=== PATIENT | male | born 1950 | race Caucasian/White ===

== ENCOUNTER 2020-01-06 17:57 | Emergency (ER) | payer OTHER ==
--- NOTE | 2020-01-06 18:05 | PDOC ---
Rapid Medical Evaluation Time Seen by Provider: 01/06/20 18:02 Medical Evaluation: 01/06/20 18:02 Pt was sent to the ER for frequent urination by Dr. Ribeiro Exam: Abdomen Soft and nontender Orders: urine, urine cx Pt to proceed to the ER for further evaluation Discharge Disposition - Diagnosis Frequent urination - Referrals Referrals: Martha Ribeiro [Primary Care Provider] - - Patient Instructions - Post Discharge Activity
[2020-01-06 18:06] VITALS: BP 123/90; PULSE 96; TEMP 99; BMI 27.3
[2020-01-06 18:33] LABS: PH,URINE 6.5 (5.0-8.0); URINE APPEARANCE CLEAR; URINE BILIRUBIN NEGATIVE (NEGATIVE); URINE COLOR YELLOW; URINE GLUCOSE (UA) NEGATIVE (NEGATIVE); URINE KETONE TRACE (NEGATIVE); URINE LEUK ESTERASE NEGATIVE (NEGATIVE); URINE NITRITE NEGATIVE (NEGATIVE); URINE PROTEIN NEGATIVE (NEGATIVE)
--- NOTE | 2020-01-06 20:56 | PDOC ---
History of Present Illness - General Chief Complaint: Urinary Problem Stated Complaint: URINARY PROBLEM Time Seen by Provider: 01/06/20 18:02 History Source: Patient - History of Present Illness Initial Comments: 01/06/20 20:58 69 year old male frequency of urine , small amount of urine with pain on urination x 1 week. denies polydipsia, polyphagia, weightloss. patient sent by PCP for evaluation. Patient reports weak urine stream, dribbling, frequency and urgency with nocturia. Patient reports that he feels inability to completely empty the bladder PMHX: none 01/06/20 21:02 01/06/20 21:32 Past History - Past Medical History Allergies/Adverse Reactions: Allergies Allergy/AdvReac Type Severity Reaction Status Date / Time No Known Allergies Allergy Verified 01/06/20 18:03 COPD: No - Psycho Social/Smoking Cessation Hx Smoking History: Never smoked Have you smoked in the past 12 months: No Information on smoking cessation initiated: No Hx Alcohol Use: No Drug/Substance Use Hx: No Review of Systems - Review of Systems Able to Perform ROS?: Yes Is the patient limited [place] proficient: No Constitutional: No: Symptoms Reported, See HPI, Chills, Diaphoresis, Fever, Loss of Appetite, Malaise, Night Sweats, Weakness, Weight Stable, Unintentional Wgt. Loss, Unexplained wgt Loss, Other ABD/GI: Yes: Other (suprapubic pain). No: Symptoms Reported, See HPI, Abdominal Distended, Abd. Pain w/ defecation, Blood Streaked Bowels, Constipated , Diarrhea, Difficulty Swallowing, Nausea, Poor Appetite, Poor Fluid Intake, Rectal Bleeding, Vomiting, Indigestion, Abdominal cramping, Tarry Stools *Physical Exam - Vital Signs Last Vital Signs Temp Pulse Resp BP Pulse Ox 99 F 96 H 18 123/90 95 01/06/20 18:04 01/06/20 18:04 01/06/20 18:04 01/06/20 18:04 01/06/20 18:04 - Physical Exam General Appearance: Yes: Appropriately Dressed Respiratory/Chest: positive: Lungs Clear, Normal Breath Sounds Cardiovascular: positive: Regular Rhythm, Regular Rate Male Genitalia: positive: normal genitalia, other (large prostate no nodule palpated) Integumentary: positive: Normal Color, Dry, Warm Neurologic: positive: Fully Oriented, Alert, Normal Mood/Affect ED Treatment Course - LABORATORY CBC & Chemistry Diagram: 01/06/20 22:14 01/06/20 22:14 - ADDITIONAL ORDERS Additional order review: Laboratory Results 01/06/20 18:11 Urine Color Yellow Urine Appearance Clear Urine pH 6.5 Ur Specific [place] 1.021 Urine Protein Negative Urine Glucose (UA) Negative Urine Ketones Trace H Urine Blood Negative Urine Nitrite Negative Urine Bilirubin Negative Urine Urobilinogen 1.0 Ur Leukocyte Esterase Negative ED Progress Note - Progress Note Progress Note: 01/06/20 21:51 A: BPH P: CBC CMP pelvic/ bladder Discharge - Discharge Information Problems reviewed: Yes Clinical Impression/Diagnosis: Urinary retention due to benign prostatic hyperplasia Disposition: HOME - Follow up/Referral Referrals: Satya Light MD [Staff Physician] - Call tomorrow Martha Ribeiro [Primary Care Provider] - Call tomorrow - Patient Discharge Instructions Patient Printed Discharge Instructions: Benign Prostatic Hyperplasia Additional Instructions: It is very important that you follow-up with a urologist. Your ultrasound shows that there is enlargement of the prostate which is causing you to retain urine. Return to the emergency room if you are unable to urinate - Post Discharge Activity Work/Back to School Note: Back to Work
--- NOTE | 2020-01-06 21:04 | PDOC ---
*Physical Exam - Vital Signs Last Vital Signs Temp Pulse Resp BP Pulse Ox 99 F 96 H 18 123/90 95 01/06/20 18:04 01/06/20 18:04 01/06/20 18:04 01/06/20 18:04 01/06/20 18:04 ED Treatment Course - ADDITIONAL ORDERS Additional order review: Laboratory Results 01/06/20 18:11 Urine Color Yellow Urine Appearance Clear Urine pH 6.5 Ur Specific [place] 1.021 Urine Protein Negative Urine Glucose (UA) Negative Urine Ketones Trace H Urine Blood Negative Urine Nitrite Negative Urine Bilirubin Negative Urine Urobilinogen 1.0 Ur Leukocyte Esterase Negative Medical Decision Making - Medical Decision Making 01/06/20 21:04 Patient seen by the advanced practice provider under my supervision. Ancillary testing reviewed as necessary. I agree with plan as outlined by the advanced practice provider. Discharge - Discharge Information Problems reviewed: Yes Clinical Impression/Diagnosis: Urinary retention due to benign prostatic hyperplasia - Follow up/Referral Referrals: Martha Ribeiro [Primary Care Provider] - - Patient Discharge Instructions - Post Discharge Activity
[2020-01-06] MEDS ORDERED: SODIUM CHLORIDE 0.9% 500 ML INFUS.BAG IV ONE (21:05)
[2020-01-06 22:33] LABS: BASO % 0.6 % (0-2.0); EOS % 1.6 % (0-4.5); HEMATOCRIT 48.5 % (35.4-49); HEMOGLOBIN 16.2 GM/dL (11.7-16.9); MCH 29.6 pg (25.7-33.7); MCHC 33.5 g/dl (32.0-35.9); MEAN CELL VOLUME 88.6 fl (80-96); MEAN PLT VOLUME 9.3 fl (7.5-11.1); NEUT % 52.8 % (42.8-82.8); PLATELET COUNT 210 K/MM3 (134-434); RBC 5.48 M/mm3 (4.00-5.60); RDW 13.3 % (11.9-15.9); WHITE BLOOD COUNT 8.5 K/mm3 (4.0-10.0)
[2020-01-06] MEDS ORDERED: TAMSULOSIN HCL 0.4 MG CAP PO ONE (22:44)
[2020-01-06] MEDS ORDERED: TAMSULOSIN HCL 0.4 MG CAP ONE ×2 (22:53→23:09)
[2020-01-06 23:01] LABS: BILIRUBIN,TOTAL 0.3 mg/dL (0.2-1); BLOOD UREA NITROGEN 18.6 mg/dL (7-18); CREATININE 1.1 mg/dL (0.55-1.3); POTASSIUM 4.1 mmol/L (3.5-5.1); TOT PROT 7.5 g/dl (6.4-8.2)
== END 2020-01-06 23:00 | disposition home or self-care (01) ==
LOC: JER 17:57
DX: N40.1 Benign prostatic hyperplasia with lower urinary tract symptoms (principal); R33.8 Other retention of urine
CPT/HCPCS: 36415; 76856-TC; 80053; 81003; 85025; 87086; 99284-25

== ENCOUNTER 2022-07-23 17:26 | Inpatient (IN) | payer OTHER ==
[2022-07-23] MEDS ORDERED: SODIUM CHLORIDE 1,000 ML IV STA (20:29)
[2022-07-23] MEDS ORDERED: ACETAMINOPHEN 1000 MG/100 ML BAG IVPB ONE (20:51)
[2022-07-23] MEDS ORDERED: ACETAMINOPHEN INJECTION 100 ML IVPB ONE (21:13)
[2022-07-23 21:45] LABS: BASO % 0.4 % (0-2.0); EOS % 0.1 % (0-4.5); HEMATOCRIT 49.6 % (35.4-49); HEMOGLOBIN 16.8 GM/dL (11.7-16.9); MCH 29.6 pg (25.7-33.7); MCHC 33.8 g/dl (32.0-35.9); MEAN CELL VOLUME 87.6 fl (80-96); MEAN PLT VOLUME 8.4 fl (7.5-11.1); NEUT % 74.5 % (42.8-82.8); PLATELET COUNT 214 10^3/uL (134-434); RBC 5.67 M/mm3 (4.00-5.60); RDW 13.4 % (11.9-15.9); WHITE BLOOD COUNT 7.8 K/mm3 (4.0-10.0)
[2022-07-23 22:07] LABS: ALBUMIN 4.1 g/dl (3.4-5.0); BLOOD UREA NITROGEN 10.7 mg/dL (7-18)
[2022-07-23 22:10] LABS: CREATININE 0.8 mg/dL (0.55-1.3)
[2022-07-23 22:11] LABS: BILIRUBIN,TOTAL 0.6 mg/dL (0.2-1); TOT PROT 7.9 g/dl (6.4-8.2)
[2022-07-23 22:33] LABS: EPI CELLS 28 /uL (0-25.1); HYALINE CASTS 1 /uL (0-3.1); URINE APPEARANCE CLEAR; URINE BACTERIA 78 /uL (0-1359); URINE BILIRUBIN NEGATIVE (NEGATIVE); URINE COLOR ORANGE; URINE GLUCOSE (UA) NEGATIVE (NEGATIVE); URINE KETONE TRACE (NEGATIVE); URINE LEUK ESTERASE TRACE (NEGATIVE); URINE NITRITE NEGATIVE (NEGATIVE); URINE PROTEIN TRACE (NEGATIVE); URINE RBC 1647 /uL (0-23.9); URINE UROBILINOGEN 0.2 mg/dL (0.2-1.0); URINE WBC 16 /uL (0-25.8)
[2022-07-23] MEDS: SODIUM CHLORIDE 1,000 ML IV SCH (22:35)
[2022-07-24] MEDS ORDERED: ACETAMINOPHEN 325 MG TABLET (FP) PO PRN (04:42)
[2022-07-24] MEDS ORDERED: ACETAMINOPHEN 325 MG TABLET (FP) ONE (05:43)
[2022-07-24 06:34] LABS: BASO % 0.5 % (0-2.0); EOS % 0.5 % (0-4.5); HEMATOCRIT 49.1 % (35.4-49); HEMOGLOBIN 16.3 GM/dL (11.7-16.9); LYMPH % 32.3 % (8-40); MCH 29.1 pg (25.7-33.7); MCHC 33.1 g/dl (32.0-35.9); MEAN CELL VOLUME 87.8 fl (80-96); MEAN PLT VOLUME 8.4 fl (7.5-11.1); MONO % 10.8 % (3.8-10.2); NEUT % 55.9 % (42.8-82.8); PLATELET COUNT 208 10^3/uL (134-434); RBC 5.59 M/mm3 (4.00-5.60); RDW 13.7 % (11.9-15.9); WHITE BLOOD COUNT 7.2 K/mm3 (4.0-10.0)
[2022-07-24 06:57] LABS: ALBUMIN 3.8 g/dl (3.4-5.0); BLOOD UREA NITROGEN 10.8 mg/dL (7-18); CALCIUM 8.8 mg/dL (8.5-10.1); MAGNESIUM 2.2 mg/dL (1.8-2.4)
[2022-07-24 07:01] LABS: CREATININE 0.8 mg/dL (0.55-1.3); PHOSPHOROUS 3.2 mg/dL (2.5-4.9)
[2022-07-24 07:02] LABS: BILIRUBIN,TOTAL 0.7 mg/dL (0.2-1)
[2022-07-24 07:03] LABS: TOT PROT 7.3 g/dl (6.4-8.2)
[2022-07-24] MEDS ORDERED: TAMSULOSIN HCL 0.4 MG CAP ONE (07:46)
[2022-07-24] MEDS: TAMSULOSIN HCL 0.4 MG CAP PO SCH (07:51)
[2022-07-24] MEDS ORDERED: ENOXAPARIN NA (PORCINE) 40 MG/0.4 ML DISP.SYRIN SQ ONE (08:46)
[2022-07-24] MEDS: ENOXAPARIN NA (PORCINE) 40 MG/0.4 ML DISP.SYRIN SQ SCH (09:18)
[2022-07-24] MEDS ORDERED: LIDOCAINE 5% TOPICAL PATCH ONE (11:33)
[2022-07-24] MEDS: LIDOCAINE 5% TOPICAL PATCH TP SCH (11:39)
[2022-07-24] MEDS ORDERED: traMADol HCL 50 MG TABLET PO ONE (11:55)
[2022-07-24] MEDS ORDERED: traMADol HCL 50 MG TABLET ONE (12:08)
[2022-07-24 15:18] VITALS: BMI 25.8
[2022-07-24] MEDS: SODIUM CHLORIDE 1,000 ML IV SCH (16:16)
[2022-07-24] MEDS: amLODIPine BESYLATE 5 MG TABLET (FP) PO SCH (16:45)
[2022-07-24] MEDS: CEFTRIAXONE 1 GM in DEXTROSE 5%-WATER - 50 ML IVPB SCH (16:45)
[2022-07-24] MEDS: ACETAMINOPHEN 325 MG TABLET (FP) PO PRN (19:53)
[2022-07-24] MEDS ORDERED: MELATONIN 5 MG TABLETS PO PRN (20:21)
[2022-07-24] MEDS: LIDOCAINE PATCH REMOVAL MC SCH (21:27)
[2022-07-25] MEDS: ACETAMINOPHEN 325 MG TABLET (FP) PO PRN ×3 (03:28→22:15)
[2022-07-25] MEDS: TAMSULOSIN HCL 0.4 MG CAP PO SCH (08:49)
[2022-07-25 09:18] LABS: HEMATOCRIT 49.2 % (35.4-49); HEMOGLOBIN 16.1 GM/dL (11.7-16.9); MCHC 32.6 g/dl (32.0-35.9); MEAN CELL VOLUME 88.7 fl (80-96); MEAN PLT VOLUME 8.9 fl (7.5-11.1); PLATELET COUNT 216 10^3/uL (134-434); RBC 5.54 M/mm3 (4.00-5.60); RDW 13.7 % (11.9-15.9); WHITE BLOOD COUNT 8.4 K/mm3 (4.0-10.0)
[2022-07-25] MEDS: LIDOCAINE 5% TOPICAL PATCH TP SCH (09:24)
[2022-07-25] MEDS: CEFTRIAXONE 1 GM in DEXTROSE 5%-WATER - 50 ML IVPB SCH (09:24)
[2022-07-25] MEDS: ENOXAPARIN NA (PORCINE) 40 MG/0.4 ML DISP.SYRIN SQ SCH (09:25)
[2022-07-25] MEDS: amLODIPine BESYLATE 5 MG TABLET (FP) PO SCH (09:26)
[2022-07-25 09:44] LABS: BLOOD UREA NITROGEN 10.3 mg/dL (7-18)
[2022-07-25 09:47] LABS: CREATININE 0.8 mg/dL (0.55-1.3)
[2022-07-25] MEDS: traMADol HCL 50 MG TABLET PO PRN (14:52)
[2022-07-25] MEDS ORDERED: ACETAMINOPHEN 500 MG TABLET (FP) PO ONE (15:31)
[2022-07-25] MEDS ORDERED: HALOPERIDOL 0.5 MG TABLET PO ONE (19:50)
[2022-07-25] MEDS ORDERED: HALOPERIDOL LACTATE 5 MG/ML IM PRN (19:58)
[2022-07-25] MEDS: LIDOCAINE PATCH REMOVAL MC SCH (22:28)
[2022-07-26] MEDS ORDERED: LIDOCAINE HCL 2% JELLY (30 ML/TUBE) TP ONE (03:18)
[2022-07-26] MEDS: traMADol HCL 50 MG TABLET PO PRN ×2 (04:05→16:20)
[2022-07-26] MEDS: LIDOCAINE 5% TOPICAL PATCH TP SCH (09:48)
[2022-07-26] MEDS: ENOXAPARIN NA (PORCINE) 40 MG/0.4 ML DISP.SYRIN SQ SCH (09:48)
[2022-07-26] MEDS: TAMSULOSIN HCL 0.4 MG CAP PO SCH ×2 (09:49→22:26)
[2022-07-26] MEDS: ACETAMINOPHEN 325 MG TABLET (FP) PO PRN ×2 (09:50→17:30)
[2022-07-26] MEDS: amLODIPine BESYLATE 5 MG TABLET (FP) PO SCH (09:50)
[2022-07-26] MEDS: CEFTRIAXONE 1 GM in DEXTROSE 5%-WATER - 50 ML IVPB SCH (09:50)
[2022-07-26 12:35] LABS: HEMATOCRIT 47.4 % (35.4-49); HEMOGLOBIN 16.1 GM/dL (11.7-16.9); MCH 29.9 pg (25.7-33.7); MCHC 33.9 g/dl (32.0-35.9); MEAN CELL VOLUME 88.2 fl (80-96); MEAN PLT VOLUME 8.3 fl (7.5-11.1); PLATELET COUNT 210 10^3/uL (134-434); RBC 5.38 M/mm3 (4.00-5.60); RDW 13.6 % (11.9-15.9)
[2022-07-26 14:06] LABS: CALCIUM 8.7 mg/dL (8.5-10.1)
[2022-07-26 14:07] LABS: ALBUMIN 3.7 g/dl (3.4-5.0)
[2022-07-26 14:08] LABS: BLOOD UREA NITROGEN 9.7 mg/dL (7-18)
[2022-07-26 14:11] LABS: CREATININE 0.8 mg/dL (0.55-1.3)
[2022-07-26 14:12] LABS: BILIRUBIN,TOTAL 0.5 mg/dL (0.2-1); TOT PROT 7.4 g/dl (6.4-8.2)
[2022-07-26] MEDS: OLANZapine 10 MG TABLET PO SCH (22:25)
[2022-07-26] MEDS: LIDOCAINE PATCH REMOVAL MC SCH (22:26)
[2022-07-27] MEDS: MELATONIN 5 MG TABLETS PO PRN (01:25)
[2022-07-27] MEDS: ACETAMINOPHEN 325 MG TABLET (FP) PO PRN ×3 (01:26→16:57)
[2022-07-27 09:01] LABS: HEMATOCRIT 49.2 % (35.4-49); HEMOGLOBIN 16.5 GM/dL (11.7-16.9); MCH 29.7 pg (25.7-33.7); MCHC 33.5 g/dl (32.0-35.9); MEAN CELL VOLUME 88.7 fl (80-96); MEAN PLT VOLUME 8.3 fl (7.5-11.1); PLATELET COUNT 220 10^3/uL (134-434); RBC 5.54 M/mm3 (4.00-5.60); RDW 13.9 % (11.9-15.9); WHITE BLOOD COUNT 6.5 K/mm3 (4.0-10.0)
[2022-07-27 09:31] LABS: CALCIUM 9.2 mg/dL (8.5-10.1)
[2022-07-27 09:32] LABS: BLOOD UREA NITROGEN 13.6 mg/dL (7-18)
[2022-07-27 09:35] LABS: CREATININE 0.9 mg/dL (0.55-1.3)
[2022-07-27] MEDS: CEFTRIAXONE 1 GM in DEXTROSE 5%-WATER - 50 ML IVPB SCH (11:00)
[2022-07-27] MEDS: amLODIPine BESYLATE 5 MG TABLET (FP) PO SCH (11:00)
[2022-07-27] MEDS: TAMSULOSIN HCL 0.4 MG CAP PO SCH ×2 (11:00→22:49)
[2022-07-27] MEDS: ENOXAPARIN NA (PORCINE) 40 MG/0.4 ML DISP.SYRIN SQ SCH (11:01)
[2022-07-27] MEDS: LIDOCAINE 5% TOPICAL PATCH TP SCH (11:01)
[2022-07-27] MEDS ORDERED: levETIRAcetam 500 MG/5 ML INJECTION VIAL IVPB ONE (13:22)
[2022-07-27 13:52] LABS: BASO % 1.1 % (0-2.0); EOS % 2.2 % (0-4.5); HEMATOCRIT 50.1 % (35.4-49); HEMOGLOBIN 16.7 GM/dL (11.7-16.9); LYMPH % 23.3 % (8-40); MCH 29.4 pg (25.7-33.7); MCHC 33.2 g/dl (32.0-35.9); MEAN CELL VOLUME 88.4 fl (80-96); MEAN PLT VOLUME 8.3 fl (7.5-11.1); NEUT % 63.4 % (42.8-82.8); PLATELET COUNT 217 10^3/uL (134-434); RBC 5.67 M/mm3 (4.00-5.60); RDW 13.7 % (11.9-15.9)
[2022-07-27 14:12] LABS: CALCIUM 9.1 mg/dL (8.5-10.1)
[2022-07-27 14:13] LABS: ALBUMIN 3.6 g/dl (3.4-5.0); BLOOD UREA NITROGEN 17.2 mg/dL (7-18); MAGNESIUM 2.3 mg/dL (1.8-2.4)
[2022-07-27 14:18] LABS: BILIRUBIN,TOTAL 0.3 mg/dL (0.2-1); TOT PROT 7.4 g/dl (6.4-8.2)
[2022-07-27] MEDS ORDERED: levETIRAcetam 500 MG/5 ML INJECTION VIAL IVPB SCH (22:00)
[2022-07-27] MEDS: OLANZapine 10 MG TABLET PO SCH (22:49)
[2022-07-27] MEDS: levETIRAcetam 500 MG TABLET (FP) PO SCH (22:49)
[2022-07-27] MEDS: LIDOCAINE PATCH REMOVAL MC SCH (22:54)
[2022-07-28] MEDS: LIDOCAINE 5% TOPICAL PATCH TP SCH (09:37)
[2022-07-28] MEDS: amLODIPine BESYLATE 5 MG TABLET (FP) PO SCH (09:37)
[2022-07-28] MEDS: TAMSULOSIN HCL 0.4 MG CAP PO SCH ×2 (09:37→22:04)
[2022-07-28] MEDS: ENOXAPARIN NA (PORCINE) 40 MG/0.4 ML DISP.SYRIN SQ SCH (09:37)
[2022-07-28] MEDS: levETIRAcetam 500 MG TABLET (FP) PO SCH ×2 (09:37→22:03)
[2022-07-28] MEDS: CEFTRIAXONE 1 GM in DEXTROSE 5%-WATER - 50 ML IVPB SCH (09:50)
[2022-07-28] MEDS: CEPHALEXIN MONOHYDRATE 500 MG CAPSULE (UD) PO SCH ×3 (11:52→23:21)
[2022-07-28] MEDS: ACETAMINOPHEN 325 MG TABLET (FP) PO PRN (13:45)
[2022-07-28] MEDS ORDERED: LORazepam 2 MG/ML SDV VIAL IM PRN (14:00)
[2022-07-28] MEDS: OLANZapine 10 MG TABLET PO SCH (22:03)
[2022-07-28] MEDS: LIDOCAINE PATCH REMOVAL MC SCH (22:06)
[2022-07-29] MEDS: CEPHALEXIN MONOHYDRATE 500 MG CAPSULE (UD) PO SCH ×4 (06:25→23:01)
[2022-07-29] MEDS: levETIRAcetam 500 MG TABLET (FP) PO SCH ×2 (10:11→21:57)
[2022-07-29] MEDS: TAMSULOSIN HCL 0.4 MG CAP PO SCH ×2 (10:11→21:57)
[2022-07-29] MEDS: OLANZapine 10 MG TABLET PO SCH ×2 (10:12→21:57)
[2022-07-29] MEDS: LIDOCAINE 5% TOPICAL PATCH TP SCH (10:12)
[2022-07-29] MEDS: amLODIPine BESYLATE 5 MG TABLET (FP) PO SCH (10:12)
[2022-07-29] MEDS: ENOXAPARIN NA (PORCINE) 40 MG/0.4 ML DISP.SYRIN SQ SCH (10:12)
[2022-07-29] MEDS: POLYETHYLENE GLYCOL (HEALTHYLAX) 3350 17 GM PACKET PO SCH (13:14)
[2022-07-29] MEDS: ACETAMINOPHEN 325 MG TABLET (FP) PO PRN ×2 (13:27→21:58)
[2022-07-29] MEDS: DEXTROSE 5%-0.45% SALINE 1,000 ML IV SCH (18:27)
[2022-07-29] MEDS: LIDOCAINE PATCH REMOVAL MC SCH (22:00)
[2022-07-29] MEDS: MELATONIN 5 MG TABLETS PO PRN (23:02)
[2022-07-30] MEDS: ACETAMINOPHEN 325 MG TABLET (FP) PO PRN ×2 (04:22→10:39)
[2022-07-30] MEDS: CEPHALEXIN MONOHYDRATE 500 MG CAPSULE (UD) PO SCH ×3 (07:03→17:59)
[2022-07-30] MEDS: POLYETHYLENE GLYCOL (HEALTHYLAX) 3350 17 GM PACKET PO SCH (10:34)
[2022-07-30] MEDS: TAMSULOSIN HCL 0.4 MG CAP PO SCH ×2 (10:34→21:22)
[2022-07-30] MEDS: ENOXAPARIN NA (PORCINE) 40 MG/0.4 ML DISP.SYRIN SQ SCH (10:34)
[2022-07-30] MEDS: OLANZapine 10 MG TABLET PO SCH ×2 (10:34→21:22)
[2022-07-30] MEDS: levETIRAcetam 500 MG TABLET (FP) PO SCH ×2 (10:34→21:21)
[2022-07-30] MEDS: amLODIPine BESYLATE 5 MG TABLET (FP) PO SCH (10:35)
[2022-07-30] MEDS: LIDOCAINE 5% TOPICAL PATCH TP SCH (10:35)
[2022-07-30] MEDS: DEXTROSE 5%-0.45% SALINE 1,000 ML IV SCH (17:56)
[2022-07-30] MEDS: MELATONIN 5 MG TABLETS PO PRN (21:22)
[2022-07-30] MEDS: LIDOCAINE PATCH REMOVAL MC SCH (21:25)
[2022-07-31] MEDS: CEPHALEXIN MONOHYDRATE 500 MG CAPSULE (UD) PO SCH ×4 (00:52→17:32)
[2022-07-31] MEDS: ACETAMINOPHEN 325 MG TABLET (FP) PO PRN ×3 (03:29→18:27)
[2022-07-31] MEDS: LIDOCAINE 5% TOPICAL PATCH TP SCH (09:32)
[2022-07-31] MEDS: ENOXAPARIN NA (PORCINE) 40 MG/0.4 ML DISP.SYRIN SQ SCH (09:33)
[2022-07-31] MEDS: OLANZapine 10 MG TABLET PO SCH ×2 (09:34→22:51)
[2022-07-31] MEDS: levETIRAcetam 500 MG TABLET (FP) PO SCH ×2 (09:34→22:51)
[2022-07-31] MEDS: POLYETHYLENE GLYCOL (HEALTHYLAX) 3350 17 GM PACKET PO SCH (09:35)
[2022-07-31] MEDS: TAMSULOSIN HCL 0.4 MG CAP PO SCH ×2 (09:35→22:51)
[2022-07-31 09:36] LABS: BASO % 0.6 % (0-2.0); EOS % 6.2 % (0-4.5); HEMATOCRIT 47.2 % (35.4-49); HEMOGLOBIN 15.4 GM/dL (11.7-16.9); MCH 29.1 pg (25.7-33.7); MCHC 32.7 g/dl (32.0-35.9); MEAN PLT VOLUME 7.8 fl (7.5-11.1); MONO % 8.7 % (3.8-10.2); NEUT % 42.5 % (42.8-82.8); PLATELET COUNT 214 10^3/uL (134-434); RDW 13.7 % (11.9-15.9); WHITE BLOOD COUNT 5.3 K/mm3 (4.0-10.0)
[2022-07-31] MEDS: amLODIPine BESYLATE 5 MG TABLET (FP) PO SCH (09:38)
[2022-07-31 10:19] LABS: ALBUMIN 3.3 g/dl (3.4-5.0); BLOOD UREA NITROGEN 13.1 mg/dL (7-18); CALCIUM 8.8 mg/dL (8.5-10.1)
[2022-07-31 10:21] LABS: BILIRUBIN,TOTAL 0.4 mg/dL (0.2-1); TOT PROT 6.4 g/dl (6.4-8.2)
[2022-07-31 10:22] LABS: CREATININE 0.8 mg/dL (0.55-1.3)
[2022-07-31] MEDS: DEXTROSE 5%-0.45% SALINE 1,000 ML IV SCH (14:52)
[2022-07-31] MEDS: LIDOCAINE PATCH REMOVAL MC SCH (22:52)
[2022-08-01] MEDS: CEPHALEXIN MONOHYDRATE 500 MG CAPSULE (UD) PO SCH ×5 (00:34→23:12)
[2022-08-01] MEDS: ACETAMINOPHEN 325 MG TABLET (FP) PO PRN ×4 (00:47→21:44)
[2022-08-01] MEDS: OLANZapine 10 MG TABLET PO SCH ×2 (09:51→21:46)
[2022-08-01] MEDS: amLODIPine BESYLATE 5 MG TABLET (FP) PO SCH (09:51)
[2022-08-01] MEDS: TAMSULOSIN HCL 0.4 MG CAP PO SCH ×2 (09:52→21:46)
[2022-08-01] MEDS: levETIRAcetam 500 MG TABLET (FP) PO SCH ×2 (09:52→21:46)
[2022-08-01] MEDS: ENOXAPARIN NA (PORCINE) 40 MG/0.4 ML DISP.SYRIN SQ SCH (09:52)
[2022-08-01] MEDS: POLYETHYLENE GLYCOL (HEALTHYLAX) 3350 17 GM PACKET PO SCH (09:52)
[2022-08-01] MEDS: LIDOCAINE 5% TOPICAL PATCH TP SCH (09:53)
[2022-08-01] MEDS: MELATONIN 5 MG TABLETS PO PRN (21:46)
[2022-08-01] MEDS: LIDOCAINE PATCH REMOVAL MC SCH (21:51)
[2022-08-02] MEDS: CEPHALEXIN MONOHYDRATE 500 MG CAPSULE (UD) PO SCH (05:55)
[2022-08-02] MEDS: ENOXAPARIN NA (PORCINE) 40 MG/0.4 ML DISP.SYRIN SQ SCH (10:33)
[2022-08-02] MEDS: amLODIPine BESYLATE 5 MG TABLET (FP) PO SCH (10:33)
[2022-08-02] MEDS: LIDOCAINE 5% TOPICAL PATCH TP SCH (10:33)
[2022-08-02] MEDS: levETIRAcetam 500 MG TABLET (FP) PO SCH ×2 (10:33→22:29)
[2022-08-02] MEDS: POLYETHYLENE GLYCOL (HEALTHYLAX) 3350 17 GM PACKET PO SCH (10:33)
[2022-08-02] MEDS: OLANZapine 10 MG TABLET PO SCH ×2 (10:33→22:29)
[2022-08-02] MEDS: TAMSULOSIN HCL 0.4 MG CAP PO SCH ×2 (10:34→22:29)
[2022-08-02] MEDS: ACETAMINOPHEN 325 MG TABLET (FP) PO PRN ×2 (10:43→18:25)
[2022-08-02] MEDS ORDERED: GABAPENTIN 300 MG CAPSULE PO SCH (22:00)
[2022-08-02] MEDS: LIDOCAINE PATCH REMOVAL MC SCH (22:33)
[2022-08-03] MEDS: POLYETHYLENE GLYCOL (HEALTHYLAX) 3350 17 GM PACKET PO SCH (11:11)
[2022-08-03] MEDS: TAMSULOSIN HCL 0.4 MG CAP PO SCH (11:11)
[2022-08-03] MEDS: amLODIPine BESYLATE 5 MG TABLET (FP) PO SCH (11:12)
[2022-08-03] MEDS: levETIRAcetam 500 MG TABLET (FP) PO SCH (11:12)
[2022-08-03] MEDS: OLANZapine 10 MG TABLET PO SCH (11:12)
[2022-08-03] MEDS: LIDOCAINE 5% TOPICAL PATCH TP SCH (11:13)
[2022-08-03] MEDS: ENOXAPARIN NA (PORCINE) 40 MG/0.4 ML DISP.SYRIN SQ SCH (11:14)
[2022-08-03] MEDS: ACETAMINOPHEN 325 MG TABLET (FP) PO PRN ×2 (13:58→20:04)
[2022-08-03 14:42] VITALS: BP 135/62; PULSE 78; RESP 19; TEMP 98.4
== END 2022-08-03 20:45 | DRG 726 ==
LOC: JER 17:26 → JERBED 07-24 00:07 → J7W 07-24 14:11
PROVIDERS: ADMIT Internal Medicine
PROC: 0T7D7ZZ Dilation of Urethra, Via Natural or Artificial Opening (ICD-10-PCS; principal; 2022-07-24)
DX: N40.1 Benign prostatic hyperplasia with lower urinary tract symptoms (principal); F05 Delirium due to known physiological condition; F03.91 Unspecified dementia, unspecified severity, with behavioral disturbance; C61 Malignant neoplasm of prostate; N32.89 Other specified disorders of bladder; I10 Essential (primary) hypertension; M54.30 Sciatica, unspecified side; M54.50 Low back pain, unspecified; R30.0 Dysuria; R33.9 Retention of urine, unspecified; I12.9 Hypertensive chronic kidney disease with stage 1 through stage 4 chronic kidney disease, or unspecified chronic kidney disease; N18.9 Chronic kidney disease, unspecified; E78.5 Hyperlipidemia, unspecified; G47.00 Insomnia, unspecified
CPT/HCPCS: 36415; 70450-TC; 70551-TC; 73502-TC-LT-FY; 73552-TC-LT-FY; 74177-TC; 76856-TC; 80048; 80053; 81003; 82140; 82550; 82553; 82607; 82962; 83036; 83735; 84100; 84146; 84153; 84443; 85025; 85027; 87086; 87186; 93005; 93010; 93971-TC; 95816; 97116-GP; 97161-GP; 99285-25; C9803-CS; Q9967; U0003; U0005

== ENCOUNTER 2024-03-22 22:53 | Inpatient (IN) | payer OTHER ==
[2024-03-22 23:54] LABS: PH,URINE 5.5 (5.0-8.0); URINE APPEARANCE CLEAR; URINE BILIRUBIN NEGATIVE (NEGATIVE); URINE COLOR YELLOW; URINE GLUCOSE (UA) NEGATIVE (NEGATIVE); URINE KETONE NEGATIVE (NEGATIVE); URINE LEUK ESTERASE NEGATIVE (NEGATIVE); URINE NITRITE NEGATIVE (NEGATIVE); URINE PROTEIN NEGATIVE (NEGATIVE); URINE UROBILINOGEN 0.2 mg/dL (0.2-1.0)
[2024-03-23 00:36] LABS: BASO % 0.5 % (0-2.0); EOS % 2.3 % (0-4.5); HEMATOCRIT 47.6 % (35.4-49); HEMOGLOBIN 15.4 GM/dL (11.7-16.9); LYMPH % 19.4 % (8-40); MCH 28.6 pg (25.7-33.7); MCHC 32.4 g/dl (32.0-35.9); MEAN CELL VOLUME 88.3 fl (80-96); MEAN PLT VOLUME 8.2 fl (7.5-11.1); MONO % 12.5 % (3.8-10.2); NEUT % 65.3 % (42.8-82.8); PLATELET COUNT 186 10^3/uL (134-434); RBC 5.39 M/mm3 (4.00-5.60); RDW 13.3 % (11.9-15.9); WHITE BLOOD COUNT 6.2 K/mm3 (4.0-10.0)
[2024-03-23 00:51] LABS: POTASSIUM 4.9 mmol/L (3.5-5.1)
[2024-03-23 00:52] LABS: CALCIUM 8.7 mg/dL (8.5-10.1)
[2024-03-23 00:53] LABS: ALBUMIN 3.7 g/dl (3.4-5.0); BLOOD UREA NITROGEN 11.3 mg/dL (7-18); MAGNESIUM 2.1 mg/dL (1.8-2.4)
[2024-03-23 00:56] LABS: CREATININE 0.9 mg/dL (0.55-1.3)
[2024-03-23 00:57] LABS: TOT PROT 7.6 g/dl (6.4-8.2)
[2024-03-23 00:59] LABS: BILIRUBIN,TOTAL 0.5 mg/dL (0.2-1)
[2024-03-23] MEDS ORDERED: HALOPERIDOL LACTATE 5 MG/ML ONE (01:33)
[2024-03-23] MEDS: HALOPERIDOL LACTATE 5 MG/ML IM ONE (01:39)
[2024-03-23] MEDS ORDERED: GABAPENTIN 300 MG CAPSULE ONE (03:31)
[2024-03-23] MEDS: GABAPENTIN 300 MG CAPSULE PO ONE (03:52)
[2024-03-23] MEDS: OLANZapine 5 MG TABLET PO ONE (03:52)
[2024-03-23 07:16] LABS: CALCIUM 8.8 mg/dL (8.5-10.1)
[2024-03-23 07:17] LABS: ALBUMIN 3.4 g/dl (3.4-5.0); BLOOD UREA NITROGEN 10.8 mg/dL (7-18); MAGNESIUM 2.3 mg/dL (1.8-2.4)
[2024-03-23 07:18] LABS: HEMATOCRIT 44.3 % (35.4-49); HEMOGLOBIN 14.5 GM/dL (11.7-16.9); MCH 28.7 pg (25.7-33.7); MCHC 32.8 g/dl (32.0-35.9); MEAN CELL VOLUME 87.5 fl (80-96); MEAN PLT VOLUME 8.4 fl (7.5-11.1); PLATELET COUNT 179 10^3/uL (134-434); RBC 5.06 M/mm3 (4.00-5.60); RDW 13.1 % (11.9-15.9); WHITE BLOOD COUNT 6.2 K/mm3 (4.0-10.0)
[2024-03-23 07:20] LABS: CREATININE 0.8 mg/dL (0.55-1.3); PHOSPHOROUS 2.8 mg/dL (2.5-4.9)
[2024-03-23 07:22] LABS: BILIRUBIN,TOTAL 0.2 mg/dL (0.2-1)
[2024-03-23] MEDS: ENOXAPARIN NA (PORCINE) 40 MG/0.4 ML DISP.SYRIN SQ SCH (09:17)
[2024-03-23] MEDS: OLANZapine 10 MG TABLET PO SCH (09:20)
[2024-03-23] MEDS: AMINO ACIDS 4.25%/D5W 1,000 ML IV SCH (16:32)
[2024-03-23] MEDS: LORazepam 2 MG/ML SDV VIAL IVPUSH ONE (23:51)
[2024-03-24 10:57] LABS: BASO % 0.5 % (0-2.0); EOS % 0.8 % (0-4.5); HEMATOCRIT 50.5 % (35.4-49); LYMPH % 28.4 % (8-40); MCH 29.2 pg (25.7-33.7); MCHC 33.6 g/dl (32.0-35.9); MEAN CELL VOLUME 86.8 fl (80-96); MEAN PLT VOLUME 8.3 fl (7.5-11.1); NEUT % 58.3 % (42.8-82.8); PLATELET COUNT 207 10^3/uL (134-434); RBC 5.82 M/mm3 (4.00-5.60); RDW 13.2 % (11.9-15.9); WHITE BLOOD COUNT 6.4 K/mm3 (4.0-10.0)
[2024-03-24 11:24] LABS: POTASSIUM 3.9 mmol/L (3.5-5.1)
[2024-03-24 11:27] LABS: CALCIUM 9.4 mg/dL (8.5-10.1)
[2024-03-24 11:32] LABS: BILIRUBIN,TOTAL 0.8 mg/dL (0.2-1); TOT PROT 8.2 g/dl (6.4-8.2)
[2024-03-24 11:35] LABS: ALBUMIN 4.1 g/dl (3.4-5.0)
[2024-03-25] MEDS: HALOPERIDOL LACTATE 5 MG/ML IM ONE (14:11)
[2024-03-25] MEDS: HALOPERIDOL LACTATE 5 MG/ML IM PRN (18:51)
[2024-03-26] MEDS: POTASSIUM CHLORIDE 10 MEQ in SODIUM CHLORIDE 0.45% 1,000 ML IVPB SCH (20:09)
[2024-03-26] MEDS ORDERED: DIVALPROEX NA *ER* EXTEND REL 500 MG TABLET.SA (FP) PO SCH (22:00)
[2024-03-26] MEDS ORDERED: VALPROATE SODIUM 500 MG/5 ML VIAL IVPB SCH (22:00)
[2024-03-26] MEDS: VALPROATE SODIUM INJECTION 500 MG in SODIUM CHLORIDE 100 ML IVPB SCH (22:25)
[2024-03-26] MEDS: OLANZapine 5 MG TABLET PO SCH (22:26)
[2024-03-27] VITALS: BMI 28.7
[2024-03-27 08:17] LABS: ALBUMIN 3.4 g/dl (3.4-5.0); BLOOD UREA NITROGEN 21.6 mg/dL (7-18); CALCIUM 9.1 mg/dL (8.5-10.1)
[2024-03-27 08:20] LABS: CREATININE 0.9 mg/dL (0.55-1.3)
[2024-03-27 08:21] LABS: BILIRUBIN,TOTAL 0.7 mg/dL (0.2-1); TOT PROT 7.6 g/dl (6.4-8.2)
[2024-03-27 08:27] LABS: BASO % 0.6 % (0-2.0); EOS % 1.1 % (0-4.5); HEMATOCRIT 49.3 % (35.4-49); HEMOGLOBIN 16.4 GM/dL (11.7-16.9); LYMPH % 27.8 % (8-40); MCHC 33.2 g/dl (32.0-35.9); MEAN CELL VOLUME 87.6 fl (80-96); MEAN PLT VOLUME 8.4 fl (7.5-11.1); MONO % 10.4 % (3.8-10.2); NEUT % 60.1 % (42.8-82.8); PLATELET COUNT 222 10^3/uL (134-434); RBC 5.63 M/mm3 (4.00-5.60); WHITE BLOOD COUNT 8.3 K/mm3 (4.0-10.0)
[2024-03-28] MEDS ORDERED: VALPROATE SODIUM 500 MG/5 ML VIAL IVPB ONE (05:30)
[2024-03-28] MEDS: VALPROATE SODIUM INJECTION 500 MG in SODIUM CHLORIDE 100 ML IVPB ONE (05:49)
[2024-03-28] MEDS: VALPROATE SODIUM INJECTION 500 MG in SODIUM CHLORIDE 100 ML IVPB SCH (17:28)
[2024-03-29 11:23] LABS: BASO % 0.6 % (0-2.0); EOS % 1.3 % (0-4.5); HEMATOCRIT 46.2 % (35.4-49); HEMOGLOBIN 15.1 GM/dL (11.7-16.9); LYMPH % 31.9 % (8-40); MCH 28.8 pg (25.7-33.7); MCHC 32.6 g/dl (32.0-35.9); MEAN CELL VOLUME 88.1 fl (80-96); MEAN PLT VOLUME 7.8 fl (7.5-11.1); MONO % 8.3 % (3.8-10.2); NEUT % 57.9 % (42.8-82.8); PLATELET COUNT 191 10^3/uL (134-434); RBC 5.24 M/mm3 (4.00-5.60); WHITE BLOOD COUNT 8.9 K/mm3 (4.0-10.0)
[2024-03-29 11:43] LABS: POTASSIUM 3.9 mmol/L (3.5-5.1)
[2024-03-29 11:45] LABS: ALBUMIN 3.1 g/dl (3.4-5.0); CALCIUM 8.6 mg/dL (8.5-10.1)
[2024-03-29 11:46] LABS: BLOOD UREA NITROGEN 20.2 mg/dL (7-18)
[2024-03-29 11:49] LABS: CREATININE 0.8 mg/dL (0.55-1.3)
[2024-03-29 11:50] LABS: BILIRUBIN,TOTAL 0.5 mg/dL (0.2-1)
[2024-03-29 14:42] LABS: EPI CELLS 13 /uL (0-25.1); HYALINE CASTS 4 /uL (0-3.1); PH,URINE 5.5 (5.0-8.0); URINE APPEARANCE CLEAR; URINE BACTERIA 29 /uL (0-1359); URINE BILIRUBIN NEGATIVE (NEGATIVE); URINE COLOR YELLOW; URINE GLUCOSE (UA) NEGATIVE (NEGATIVE); URINE KETONE 1+ (NEGATIVE); URINE LEUK ESTERASE TRACE (NEGATIVE); URINE NITRITE NEGATIVE (NEGATIVE); URINE PROTEIN NEGATIVE (NEGATIVE); URINE RBC 12 /uL (0-23.9); URINE WBC 22 /uL (0-25.8)
[2024-03-30 07:35] VITALS: RESP 18
[2024-04-01] MEDS: MIRTAZAPINE 15 MG TABLET (FP) PO SCH (22:39)
[2024-04-02 08:34] VITALS: BP 133/76; PULSE 98; TEMP 98.5
[2024-04-02] MEDS ORDERED: DIVALPROEX SODIUM 500 MG TABLET E.C. PO SCH (22:00)
== END 2024-04-02 11:21 | disposition home or self-care (01) | DRG 884 ==
LOC: JER 22:53 → INTOOBSV 03-23 05:12 → JERBED 03-23 05:12 → J6S 03-23 08:36 → OBSVTOIN 03-26 10:12
PROVIDERS: ADMIT Internal Medicine; ATTEND Family Medicine
DX: F03.918 Unspecified dementia, unspecified severity, with other behavioral disturbance (principal); G92.8 Other toxic encephalopathy; R56.9 Unspecified convulsions; F29 Unspecified psychosis not due to a substance or known physiological condition; C61 Malignant neoplasm of prostate; F31.9 Bipolar disorder, unspecified
CPT/HCPCS: 0241U-QW; 36415; 70450-TC; 71045-TC-FY; 76856-TC; 80053; 81003; 82607; 82962; 83735; 84100; 84443; 84484; 85025; 85027; 86593; 86780; 86850; 86900; 86901; 87040; 87086; 87186; 87633; 93005; 93010; 99285-25; G0378